=== PATIENT | female | born 1985 | race Caucasian/White ===

== ENCOUNTER 2020-06-14 09:44 | Day surgery (SDC) | payer OTHER ==
[2020-06-14] MEDS ORDERED: POLY119PG PO (14:38)
[2020-06-14] MEDS ORDERED: PERCOCET 5-3251 EACH PO (14:38)
[2020-06-14] MEDS ORDERED: SURFAK240 MG PO (14:38)
[2020-06-14] MEDS ORDERED: NEURONTIN800 MG PO (14:39)
== END 2020-06-14 17:50 | disposition home or self-care (01) ==
LOC: CIR.AMB 09:44
PROVIDERS: ATTEND Surgery
DX: K42.0 Umbilical hernia with obstruction, without gangrene (principal); K43.0 Incisional hernia with obstruction, without gangrene; M62.08 Separation of muscle (nontraumatic), other site; Z20.822 Contact with and (suspected) exposure to COVID-19